=== PATIENT | male | born 1970 | race Caucasian/White ===

== ENCOUNTER → 2022-01-20 | Day surgery (SDC) | payer OTHER ==
[~2022-01-20] VITALS: Ht 182.9 cm; Wt 111.1 kg
[~2022-01-20] MED LIST: ALLOPURINOL300 MG PO; APPLE CIDER VI600 MG PO; CLARITIN10 MG PO; DICLOFENAC SODI75 MG PO; LIPITOR 10MG TA10 MG PO; MULTIPLE VITAM1 EAC1 PO; OMEPRAZOLE40 MG PO; PROSTATE PQ TA1 EACH PO
== END | disposition home or self-care (01) ==
LOC: FAS 10:00
DX: Z12.11 Encounter for screening for malignant neoplasm of colon (principal); K31.9 Disease of stomach and duodenum, unspecified; K21.9 Gastro-esophageal reflux disease without esophagitis; D12.5 Benign neoplasm of sigmoid colon; K29.60 Other gastritis without bleeding; K44.9 Diaphragmatic hernia without obstruction or gangrene; K64.8 Other hemorrhoids; E78.00 Pure hypercholesterolemia, unspecified; M10.9 Gout, unspecified; M19.90 Unspecified osteoarthritis, unspecified site; F19.11 Other psychoactive substance abuse, in remission; Z72.89 Other problems related to lifestyle
CPT/HCPCS: J2704; J7120